=== PATIENT | female | born 1960 | race Hispanic/Latino ===

== ENCOUNTER → 2019-05-14 | Outpatient (CLI) | payer OTHER | END | disposition home or self-care (01) | LOC: RAH 11:33 | PROVIDERS: ATTEND Internal Medicine Cardiovascular Disease | DX: Z13.6 Encounter for screening for cardiovascular disorders (principal) | CPT/HCPCS: 75571 ==

== ENCOUNTER 2020-11-23 14:26 | Emergency (ER) | payer MEDICAID, OTHER ==
[2020-11-23] MEDS ORDERED: ALBUTEROL INHALER 90MCG/INH IH ONE (14:55)
[2020-11-23] MEDS ORDERED: GUAIFENESIN SUGAR-FREE 100 MG/5 ML UDCUP ONE (14:55)
[2020-11-23] MEDS ORDERED: ACETAMINOPHEN 500 MG TABLET ONE (14:55)
[2020-11-23 15:01] LABS: BASOPHILS % (AUTO) 0.3 % (0.0-5.0); HEMATOCRIT 38.1 % (36-48); LYMPHOCYTES % (AUTO) 35.7 % (21.0-51.0); MEAN CORPUSCULAR HEMOGLOBIN 29.2 pg (27.0-33.0); MEAN CORPUSCULAR HGB CONC 34.1 g/dL (32.0-36.0); MEAN CORPUSCULAR VOLUME 85.6 fL (79-99); NEUTROPHILS % (AUTO) 53.7 % (40.0-77.0); PLATELET COUNT (AUTO) 169 K/uL (130-400); RED BLOOD CELL COUNT(AUTO) 4.45 MIL/uL (4.00-5.50); RED CELL DISTRIBUTION WIDTH 13.2 % (11.0-15.5); WHITE BLOOD COUNT (AUTO) 3.9 K/uL (4.8-10.8)
[2020-11-23 15:19] LABS: PROTHROMBIN TIME 10.9 SEC (9.6-11.6)
[2020-11-23 15:20] LABS: CREATININE 1.6 mg/dL (0.5-1.5); PARTIAL THROMBOPLASTIN TIME 26.5 SEC (26.3-35.5); POTASSIUM 3.8 mmol/L (3.5-5.1)
[2020-11-23 15:26] LABS: ABG BASE EXCESS -0.1 mmol/L (-2.0-3.0); ABG HCO3 23.8 mmol/L (21.0-28.0); ABG PCO2 37 mmHg (32-45)
[2020-11-23 15:29] LABS: ALBUMIN 3.3 g/dL (3.5-5.0); BILIRUBIN,TOTAL 0.3 mg/dL (0.2-1.0); TOTAL PROTEIN, SERUM 7.6 g/dL (6.0-8.3)
[2020-11-23 15:36] LABS: B-TYPE NATRIURETIC PEPTIDE 116 pg/mL (0-100)
[2021-03-25] MEDS ORDERED: MELO7.5T12 PO (08:08)
[2021-03-25] MEDS ORDERED: CYCL-309 PO (08:08)
[2021-03-28] MEDS ORDERED: CLON0.1T PO (12:41)
[2021-03-28] MEDS ORDERED: AMLO-258 PO (12:41)
[2021-08-22] MEDS ORDERED: VITAMIN D PO (10:34)
[2021-08-22] MEDS ORDERED: HYDR-3830 PO (10:34)
[2021-08-22] MEDS ORDERED: MELO-106 PO (10:34)
[2021-08-22] MEDS ORDERED: LOSA100T58 PO (10:34)
[2021-08-22] MEDS ORDERED: DILT180C86 PO (10:34)
== END 2020-11-23 16:02 | disposition home or self-care (01) ==
LOC: EDH 14:26
DX: U07.1 COVID-19 (principal); I10 Essential (primary) hypertension; E11.9 Type 2 diabetes mellitus without complications; Z88.6 Allergy status to analgesic agent
CPT/HCPCS: 36415; 36600; 71045; 80053; 82550; 82803; 83605; 83880; 84145; 84484; 85025; 85610; 85730; 87040; 87426; 87804; 93005

== ENCOUNTER 2021-03-08 06:17 | Day surgery (SDC) | payer MEDICAID ==
[2021-03-06 11:33] LABS: BASOPHILS % (AUTO) 0.7 % (0.0-5.0); EOSINOPHILS % (AUTO) 2.2 % (0.0-8.0); HEMATOCRIT 41.2 % (36-48); LYMPHOCYTES % (AUTO) 23.8 % (21.0-51.0); MEAN CORPUSCULAR HGB CONC 33.3 g/dL (32.0-36.0); MEAN CORPUSCULAR VOLUME 87.3 fL (79-99); MONOCYTES % (AUTO) 7.9 % (3.0-13.0); PLATELET COUNT (AUTO) 284 K/uL (130-400); RED BLOOD CELL COUNT(AUTO) 4.72 MIL/uL (4.00-5.50); RED CELL DISTRIBUTION WIDTH 12.6 % (11.0-15.5); WHITE BLOOD COUNT (AUTO) 7.3 K/uL (4.8-10.8)
[2021-03-06 11:40] LABS: CREATININE 0.9 mg/dL (0.5-1.5); POTASSIUM 5.2 mmol/L (3.5-5.1)
[2021-03-06 11:45] LABS: INR 1.04 (0.85-1.15); PROTHROMBIN TIME 11.3 SEC (9.6-11.6)
[2021-03-06 11:46] LABS: PARTIAL THROMBOPLASTIN TIME 26.7 SEC (26.3-35.5)
[~2021-03-08] VITALS: Ht 157.5 cm; Wt 77.0 kg
[2021-03-08 06:20] VITALS: BP 142/67
[2021-03-08] MEDS ORDERED: LOSA100T58 PO (06:58)
[2021-03-08] MEDS ORDERED: DILT240C97 PO (06:58)
[2021-03-08] MEDS ORDERED: FOLI1TAB85 PO (06:58)
[2021-03-08] MEDS ORDERED: CARV25TA PO (06:58)
[2021-03-08] MEDS ORDERED: SODIUM CHLORIDE 0.9% 1000ML 1,000 ML IV SCH (08:00)
== END 2021-03-08 07:37 | disposition home or self-care (01) ==
LOC: DAH 06:17
PROVIDERS: ATTEND Internal Medicine Cardiovascular Disease
DX: Z01.810 Encounter for preprocedural cardiovascular examination (principal); I49.3 Ventricular premature depolarization; Z88.6 Allergy status to analgesic agent; Z79.01 Long term (current) use of anticoagulants
CPT/HCPCS: 36415; 80048; 82948; 85025; 85610; 85730; A4215; A4216; A4221; A4222; A4223 ×3; A4606; A4663

== ENCOUNTER 2021-03-29 06:00 | Observation (INO) | payer MEDICAID ==
[2021-03-27 11:40] VITALS: BP 144/81
[2021-03-27 13:09] LABS: BASOPHILS % (AUTO) 0.4 % (0.0-5.0); EOSINOPHILS % (AUTO) 3.3 % (0.0-8.0); HEMATOCRIT 41.9 % (36-48); LYMPHOCYTES % (AUTO) 36.7 % (21.0-51.0); MEAN CORPUSCULAR HGB CONC 32.2 g/dL (32.0-36.0); MEAN CORPUSCULAR VOLUME 86.7 fL (79-99); MONOCYTES % (AUTO) 6.4 % (3.0-13.0); NEUTROPHILS % (AUTO) 53.1 % (40.0-77.0); PLATELET COUNT (AUTO) 281 K/uL (130-400); RED BLOOD CELL COUNT(AUTO) 4.83 MIL/uL (4.00-5.50); RED CELL DISTRIBUTION WIDTH 12.5 % (11.0-15.5); WHITE BLOOD COUNT (AUTO) 6.7 K/uL (4.8-10.8)
[2021-03-27 13:23] LABS: CREATININE 1.1 mg/dL (0.5-1.5); POTASSIUM 4.6 mmol/L (3.5-5.1)
[2021-03-27 13:26] LABS: INR 1.05 (0.85-1.15); PROTHROMBIN TIME 11.4 SEC (9.6-11.6)
[2021-03-27 13:27] LABS: PARTIAL THROMBOPLASTIN TIME 24.8 SEC (26.3-35.5)
[~2021-03-29] VITALS: Ht 157.5 cm; Wt 77.0 kg
[2021-03-29] VITALS (14 sets, daily range): BP systolic 100–142; BP diastolic 50–113
[~2021-03-29 06:00] MED LIST: AMLO-258 PO; CARV25TA PO; CLON0.1T PO; CYCL10TA7 PO; DILT240C97 PO; FOLI1TAB85 PO; LOSA100T58 PO
[2021-03-29] MEDS ORDERED: CARV6.25 PO (07:09)
[2021-03-29] MEDS ORDERED: CARV12.511 PO (07:09)
[2021-03-29] MEDS ORDERED: HEPARIN 10,000 UNIT/10ML (1,000 UNIT/ML) VIAL ONE (07:19)
[2021-03-29] MEDS ORDERED: MIDAZOLAM HCL 1 MG/ML 2ML VIAL ONE (07:19)
[2021-03-29] MEDS ORDERED: LIDOCAINE HCL 400MG/20ML VIAL ONE (07:20)
[2021-03-29] MEDS ORDERED: MEPERIDINE-PF 25 MG/ML SYG ONE (07:20)
[2021-03-29] MEDS ORDERED: NACL 0.9% 1000ML 1,000 ML IV SCH (08:00)
[2021-03-29] MEDS ORDERED: CLONIDINE HCL 0.1 MG TABLET PO PRN (11:00)
[2021-03-29] MEDS ORDERED: ACETAMINOPHEN 325 MG TAB PO PRN ×2 (16:30)
[2021-03-29] MEDS ORDERED: ONDANSETRON 4MG INJ IV PRN (16:30)
[2021-03-29] MEDS ORDERED: LACTULOSE 20 GM/30 ML UDCUP PO PRN (16:30)
[2021-03-29] MEDS: INSULIN HUMULIN R 100 UNIT/ML 3ML SQ SCH (20:28)
[2021-03-29] MEDS: CYCLOBENZAPRINE HCL 10 MG TABLET PO SCH ×2 (20:29→20:41)
[2021-03-29] MEDS: LOSARTAN 100 MG TABLET PO SCH (20:36)
[2021-03-29] MEDS: AMLODIPINE 5 MG TAB PO SCH (20:36)
[2021-03-30 03:56] VITALS: BP 107/55
[2021-03-30] MEDS: INSULIN HUMULIN R 100 UNIT/ML 3ML SQ SCH (06:37)
[2021-03-30 08:34] VITALS: BP 125/79
[2021-03-30] MEDS: LOSARTAN 100 MG TABLET PO SCH (09:26)
[2021-03-30] MEDS: AMLODIPINE 5 MG TAB PO SCH (09:26)
[2021-03-30] MEDS: CYCLOBENZAPRINE HCL 10 MG TABLET PO SCH (09:26)
== END 2021-03-30 12:24 | disposition home or self-care (01) ==
LOC: DAH 06:00 → INTOOBSV 06:01 → OBSVTOIN 06:01 → DAHIP 06:01 → DAH 06:01 → 4CH 17:21
PROVIDERS: ADMIT Internal Medicine; ATTEND Internal Medicine
DX: I49.3 Ventricular premature depolarization (principal); E11.22 Type 2 diabetes mellitus with diabetic chronic kidney disease; I12.9 Hypertensive chronic kidney disease with stage 1 through stage 4 chronic kidney disease, or unspecified chronic kidney disease; N18.30 Chronic kidney disease, stage 3 unspecified; E78.5 Hyperlipidemia, unspecified; I47.1 Supraventricular tachycardia; Z79.01 Long term (current) use of anticoagulants; Z79.899 Other long term (current) drug therapy; Z88.5 Allergy status to narcotic agent
CPT/HCPCS: 36415; 80048; 82948 ×5; 85025; 85610; 85730; 93005 ×2; 93654; A4215; A4216; A4221; A4222; A4223 ×3; A4606; A4649 ×2; A4663; C1730 ×2; C1732; C1893; C1894 ×2; G0378 ×25; J1644 ×2; J2175; J2250; J3490; J7030 ×2; 99156; 99157

== ENCOUNTER 2021-08-23 06:19 | Day surgery (SDC) | payer MEDICAID ==
[2021-08-21 14:45] LABS: BASOPHILS % (AUTO) 0.9 % (0.0-5.0); EOSINOPHILS % (AUTO) 2.7 % (0.0-8.0); HEMATOCRIT 36.9 % (36-48); LYMPHOCYTES % (AUTO) 31.2 % (21.0-51.0); MEAN CORPUSCULAR HEMOGLOBIN 28.6 pg (27.0-33.0); MEAN CORPUSCULAR HGB CONC 32.2 g/dL (32.0-36.0); MEAN CORPUSCULAR VOLUME 88.7 fL (79-99); MONOCYTES % (AUTO) 8.3 % (3.0-13.0); NEUTROPHILS % (AUTO) 56.7 % (40.0-77.0); PLATELET COUNT (AUTO) 262 K/uL (130-400); RED BLOOD CELL COUNT(AUTO) 4.16 MIL/uL (4.00-5.50); RED CELL DISTRIBUTION WIDTH 12.9 % (11.0-15.5); WHITE BLOOD COUNT (AUTO) 5.7 K/uL (4.8-10.8)
[2021-08-21 14:52] LABS: CREATININE 1.1 mg/dL (0.5-1.5); POTASSIUM 4.5 mmol/L (3.5-5.1)
[2021-08-21 15:02] LABS: INR 1.05 (0.85-1.15); PROTHROMBIN TIME 11.4 SEC (9.6-11.6)
[2021-08-21 15:03] LABS: PARTIAL THROMBOPLASTIN TIME 25.3 SEC (26.3-35.5)
[2021-08-22 10:12] VITALS: BP 160/71
[2021-08-23] VITALS (8 sets, daily range): BP systolic 125–160; BP diastolic 59–83
[~2021-08-23] VITALS: Ht 160 cm; Wt 77.4 kg
[~2021-08-23 06:19] MED LIST changes: +0.9%NACL 1000ML 1,000 ML IV ONE; -AMLO-258 PO; -CARV25TA PO; -CLON0.1T PO; -CYCL10TA7 PO; +DILT180C86 PO; -DILT240C97 PO; +HYDR-3830 PO; +MELO-106 PO; +VITAMIN D PO
[2021-08-23] MEDS ORDERED: MEPERIDINE-PF 25 MG/ML SYG ONE ×4 (07:26→13:00)
[2021-08-23] MEDS ORDERED: MIDAZOLAM HCL 1 MG/ML 2ML VIAL ONE ×4 (07:26→13:00)
[2021-08-23] MEDS ORDERED: LIDOCAINE HCL 400MG/20ML VIAL ONE ×2 (07:26→10:58)
[2021-08-23] MEDS ORDERED: HEPARIN 10,000 UNIT/10ML (1,000 UNIT/ML) VIAL ONE ×2 (07:27→10:58)
[2021-08-23] MEDS ORDERED: ISOPROTERENOL HCL 0.2 MG/ML AMP/VIAL/BAG ONE (13:13)
[2021-08-23] MEDS ORDERED: PROP225C11 PO (14:33)
== END 2021-08-23 17:40 | disposition home or self-care (01) ==
LOC: DAH 06:19
PROVIDERS: ATTEND Internal Medicine Cardiovascular Disease
DX: I47.1 Supraventricular tachycardia (principal); I49.3 Ventricular premature depolarization; E11.22 Type 2 diabetes mellitus with diabetic chronic kidney disease; I12.9 Hypertensive chronic kidney disease with stage 1 through stage 4 chronic kidney disease, or unspecified chronic kidney disease; N18.4 Chronic kidney disease, stage 4 (severe); E78.00 Pure hypercholesterolemia, unspecified; E78.5 Hyperlipidemia, unspecified; Z79.01 Long term (current) use of anticoagulants; Z87.891 Personal history of nicotine dependence; Z88.6 Allergy status to analgesic agent; Z79.899 Other long term (current) drug therapy
CPT/HCPCS: 36415; 80048; 85025; 85610; 85730; 93005; 93620; 93621; 93623; A4215; A4216; A4221; A4222; A4223 ×3; A4606; A4649 ×2; A4663; C1730 ×4; C1894 ×5; J1644; J2175 ×3; J2250 ×3; J3490 ×2; J7030; 99156; 99157

== ENCOUNTER → 2022-03-15 | Outpatient (CLI) | payer MEDICAID ==
[~2022-03-15] MED LIST changes: -0.9%NACL 1000ML 1,000 ML IV ONE; +PROP225C11 PO
== END | disposition home or self-care (01) ==
LOC: RAH 11:01
PROVIDERS: ATTEND Internal Medicine Gastroenterology
DX: R10.13 Epigastric pain (principal); R14.0 Abdominal distension (gaseous); R11.0 Nausea
CPT/HCPCS: 78264; A9541